=== PATIENT | male | born 1975 | race Caucasian/White ===

== ENCOUNTER 2019-11-15 16:07 | Emergency (ER) | payer MEDICAID, SELFPAY ==
[2019-11-15 16:24] VITALS: BP 143/91; PULSE 81; RESP 19; TEMP 36.8; O2SAT 100; BMI 35.9
--- NOTE | 2019-11-15 16:24 | XR_ITS ---
PROCEDURE: XR FOOT LT MIN 3V CLINICAL INDICATION: PAIN COMPARISON: No exams were available for comparison FINDINGS: No fracture or dislocation. No lytic or blastic change. There is normal mineralization. The joint spaces are well-preserved. No significant degenerative/arthritic changes. No erosive changes evident. Other findings:Prominent area of exostosis involves the anterior distal aspect of the navicular. There is a type 2 os navicularis and an os cuboid in IMPRESSION: No acute findings. Dictated by: Andrea Lechuga MD 11/15/2019 17:46 Electronically signed by Andrea Lechuga MD in [place] 11/15/2019 17:46
--- NOTE | 2019-11-15 16:28 | HMH.EDUTC ---
[facility] [place] Disposition Clinical Impression: Plantar fasciitis Disposition: Home, Self-Care Condition on Discharge: Good Instructions: Get Back in the Game after Plantar Fasciitis, DI for Foot Pain Additional Instructions: Follow up with Podiatry for further evaluation and treatment of pain in left foot *Return if needed Straight to ER if any life threatening symptoms Return if needed Call [facility] later this evening or tomorrow for official Radiology reading of your xray Call Dr Garcia office for appointment, let them know it was recommended that you follow up in the clinic Straight to ER if any life threatening symptoms, Referrals: PCP,No [Primary Care Provider] - As needed Anju Garcia DPM [Staff Physician] - Valerie Cooper APRN [Nurse Practitioner] - Time of Disposition: 17:21 Medical Decision Making - Daniel Inquiry Pt receiving controlled substance: No Daniel was queried for this patient: No Vital Signs: 11/15/19 16:24 Temperature 98.2 F Temperature Source Temporal Artery Scan Pulse Rate [Right Brachial] 81 Respiratory Rate 19 Blood Pressure [Right Arm] 143/91 H Blood Pressure Mean [Right Arm] 108 Blood Pressure Source [Right Arm] Automatic Cuff Blood Pressure Position [Right Arm] Sitting 02 Sat by Pulse Oximetry 100 Oxygen Delivery Method Room Air Orders (Tests/Meds): ORDERS Category Date Time Status XR foot LT min 3V Stat Exams 11/15/19 16:24 Taken - Radiology Data #1 Image(s): Foot/Toes Image Reviewed: Yes I reviewed the patient's radiology image Preliminary Findings: No Fracture Seen No acute fracture, heel spur noted, will place in boot splint and have patient follow up with Dr Garcia [facility] [place] HPI - General Stated complaint: Pain in L foot pain for 2 mos Time Seen by Provider: 11/15/19 16:28 Mode of Arrival: Ambulatory Source of Information: Patient Limitations: No Limitations Description of Symptoms (Recalled from Triage Doc. by RN): left foot pain HEENT Symptoms (Recalled from RN notes): No Resp Symptoms (Recalled from RN notes): No Skin Symptoms (Recalled from RN notes): No MS Symptoms (Recalled from RN notes): Yes Functional Status (Recalled from RN notes): none - History of Present Illness Provider Complaint: Patient states that he has been having pain in his left foot on and off for about a month States thata pain in his his left heel area and shoots up into his foot States that pain is worse when he first wakes up in the morning States that he bought some inserts for his shoes but it hasnt helped and someone said he may have planter Facitits so he come in to get it checked - Related Data Allergies Allergy/AdvReac Type Severity Reaction Status Date / Time No Known Allergies Allergy Verified 11/15/19 16:20 - Worker's Comp Is this a Worker's Comp case?: No [facility] History - Hepatitis A Screen Drug use history?: No High risk sexual behaviors?: No History of sexually transmitted infection?: No Currently employed?: No Childcare worker?: No Do you have indoor plumbing?: Yes Do you have electricity?: Yes Attestation statement:: This patient has been screened for Hepatitis A risk factors. I have reviewed the patient's past medical history: Yes Medical History: Denies:: Cancer, Diabetes Mellitus Type 1, Diabetes Mellitus Type 2, Internal Pacemaker, MRSA Other Surgeries: No: Pacemaker Amputation: No Fractures: No - Social History Smoking Status: Never smoker Alcohol Intake: never Occupational Status: employed ROS Obtained: Yes All systems reviewed & no additional complaints, Yes Systems reviewed as appropriate & no additional complaints - Constitutional Constitutional: Reports system reviewed and no additional complaints, except as docu - Eyes Eyes: Reports system reviewed and no additional complaints, except as docu - ENT Ears, Nose, Mouth, and Throat: Reports system reviewed and no additional complaints, except as docu - Cardiovascular Cardiovascul
[2019-11-15 17:25] VITALS: BP 143/91; PULSE 81; RESP 19; TEMP 36.8; O2SAT 100
== END 2019-11-15 17:30 | disposition home or self-care (01) ==
PROVIDERS: Emergency Provider Nurse Practitioner
DX: M72.2 Plantar fascial fibromatosis (principal)
CPT/HCPCS: 73630; 99201

== ENCOUNTER → 2021-05-06 10:48 | Outpatient (CLI) | payer MEDICAID, SELFPAY ==
[2021-05-06 11:37] LABS: Basophils # 0.1 K/mm3 (0-0.2); Basophils % 0.7 % (0.1-2.0); Eosinophils # 0.1 K/mm3 (0.0-0.4); Eosinophils % 1.6 % (0.1-12.0); Hematocrit 46.5 % (42.0-52.0); Hemoglobin 15.1 g/dL (14.1-18.0); Lymphocytes # 2.2 K/mm3 (0.7-4.5); Lymphocytes % 27.9 % (10-50); Mean Corpuscular HGB Conc 32.5 g/dL (31.8-35.4); Mean Corpuscular Hemoglobin 29.7 pg (27.0-31.2); Mean Corpuscular Volume 91.4 fl (80-94); Mean Platelet Volume 9.5 fl (7.4-10.4); Monocytes # 0.5 K/mm3 (0.1-1.0); Monocytes % 5.9 % (1.7-9.3); Neutrophils # 5.1 K/mm3 (1.8-7.8); Neutrophils % 63.9 % (37.0-80.0); Platelet Count 168 K/mm3 (142-424); Red Blood Count 5.08 M/mm3 (4.60-6.20); Red Cell Distribution Width 13.2 % (11.5-17.5)
[2021-05-06 12:02] LABS: Alanine Aminotransferase 37 U/L (12-78); Albumin Level 4.1 g/dl (3.5-5.0); Albumin/Globulin Ratio 1.3 (1.1-1.8); Alkaline Phosphatase 69 U/L (38-126); Anion Gap 10.1 mEq/L (5-15); Aspartate Amino Transferase 34 U/L (17-59); Bilirubin,Total 1.2 mg/dl (0.2-1.3); Blood Urea Nitrogen 12 mg/dl (9-20); Calcium 9.2 mg/dl (8.4-10.2); Carbon Dioxide 30 mmol/L (22.0-30.0); Chloride 100 mmol/L (98-107); Cholesterol 139 mg/dl (140-200); Estimated Glomerular Filt Rate 104 ml/min (>60); GFR (African American) 126 ML/MIN (>60); Globulin 3.2 g/dL (1.3-3.2); Glucose 139 mg/dl (74-100); HDL Cholesterol 35 mg/dl (40-60); Potassium 4.1 mmoL/L (3.5-5.1); Sodium 136 mmol/L (136-145); Total Protein,Serum 7.3 g/dl (6.3-8.2); Triglycerides 155 mg/dl (30-150); VLDL Cholesterol 31 mg/dL (0-40)
[2021-05-06 12:13] LABS: Direct LDL Cholesterol 76.31 mg/dL (100-129)
[2021-05-06 12:33] LABS: Prostate Specific Ag Screen 3.1 ng/ml (0.0-4.0); Thyroid Stimulating Hormone 2.03 uIU/mL (0.465-4.68)
[2021-05-06 16:31] LABS: Hemoglobin A1C 5.9 % (4.0-6.0)
[2021-05-07 08:37] LABS: Testosterone,Total 207 ng/dL (264-916)
== END ==
PROVIDERS: Visit Provider Nurse Practitioner Family
DX: Z00.00 Encounter for general adult medical examination without abnormal findings (principal); N52.9 Male erectile dysfunction, unspecified; R73.9 Hyperglycemia, unspecified; Z12.5 Encounter for screening for malignant neoplasm of prostate
CPT/HCPCS: 80053; 80061; 83036; 84403; 84443; 85025; G0103

== ENCOUNTER → 2021-06-25 08:41 | Outpatient (CLI) | payer MEDICAID, SELFPAY ==
[2021-06-26 08:25] LABS: Testosterone,Total 281 ng/dL (264-916)
== END ==
PROVIDERS: Visit Provider Nurse Practitioner Family
DX: R79.89 Other specified abnormal findings of blood chemistry (principal)
CPT/HCPCS: 36415; 84403

== ENCOUNTER 2024-08-24 13:07 | Outpatient (CLI) | payer MEDICAID, SELFPAY ==
--- NOTE | 2024-08-24 13:11 | XR_ITS ---
FINAL REPORT CLINICAL HISTORY: Neck pain, stiffness x1 year COMPARISON: None FINDINGS: CERVICAL SPINE 6 views of the cervical spine were obtained. There is no acute fracture. There is no malalignment. The vertebrae are normal in height. The disc spaces are preserved. There are prominent anterior osteophytes bridging C3-4 and C4-5. IMPRESSION: Degenerative changes without acute abnormality. THORACIC SPINE 5 views of the thoracic spine were obtained. There is no acute fracture. There is no malalignment. The vertebrae are normal in height. The spaces are preserved. There is ossification of the anterior longitudinal ligament. IMPRESSION: Degenerative changes without acute abnormality. LUMBAR SPINE 5 views of the lumbar spine were obtained. There is no acute fracture. There is no malalignment. The vertebrae are normal in height. The disc spaces are preserved. There is mild anterior osteophyte formation at L3-4, L4-5, and L5-S1. IMPRESSION: Degenerative changes without acute abnormality. Reviewed, Interpreted and Dictated by Cristopher Krishnamurthy MD Transcribed by Deann Marx Authenticated and [facility]
[2024-08-24 14:28] LABS: Basophils % 0.6 % (0.1-2.0); Eosinophils # 0.2 Kmm3 (0.0-0.4); Eosinophils % 2.1 % (0.1-12.0); Hematocrit 40.4 % (42.0-52.0); Hemoglobin 13.6 g/dL (14.1-18.0); Lymphocytes # 2.5 K/mm3 (0.7-4.5); Mean Corpuscular HGB Conc 33.7 g/dL (31.8-35.4); Mean Corpuscular Hemoglobin 29.3 pg (27.0-31.2); Mean Corpuscular Volume 87.1 fl (80-94); Mean Platelet Volume 11.4 fl (7.4-10.4); Monocytes # 0.8 K/mm3 (0.1-1.0); Monocytes % 11.2 % (1.7-9.3); Neutrophils # 3.5 K/mm3 (1.8-7.8); Nucleated Red Blood Cells # 0 10^3/uL; Nucleated Red Blood Cells % 0 %; Platelet Count 151 K/mm3 (142-424); Red Blood Count 4.64 M/mm3 (4.60-6.20); Red Cell Distribution Width 13.3 % (11.5-17.5); Red Cell Distribution Width-SD 41.8 fL; White Blood Count 7.1 K/mm3 (4.8-10.8)
[2024-08-24 14:34] LABS: Albumin Level 3.8 g/dl (3.5-5.0); Chloride 104 mmol/L (98-107); Sodium 139 mmol/L (136-145)
[2024-08-24 14:37] LABS: Alanine Aminotransferase 21 U/L (12-78); Albumin/Globulin Ratio 1.1 (1.1-1.8); Alkaline Phosphatase 60 U/L (38-126); Aspartate Amino Transferase 29 U/L (17-59); Bilirubin,Total 1.3 mg/dl (0.2-1.3); Blood Urea Nitrogen 11 mg/dl (9-20); Calcium 8.7 mg/dl (8.4-10.2); Carbon Dioxide 29 mmol/L (22.0-30.0); Estimated Glomerular Filt Rate 102 ml/min (>60); GFR (African American) 124 ML/MIN (>60); Globulin 3.6 g/dL (1.3-3.2); Glucose 84 mg/dl (74-100); Total Protein,Serum 7.4 g/dl (6.3-8.2)
[2024-08-24 15:36] LABS: Erythrocyte Sedimentation Rate 21 mm/hr (0-15)
[2024-08-25 12:27] LABS: Anti-Centromere B Antibodies <0.2 AI (0.0-0.9); Anti-DNA (DS) Ab Qn <1 IU/mL (0-9); Anti-Jo-1 <0.2 AI (0.0-0.9); Anti-Smith Antibody <0.2 AI (0.0-0.9); Antichromatin Antibodies <0.2 AI (0.0-0.9); Antiscleroderma-70 Antibodies <0.2 AI (0.0-0.9); RNP Antibodies <0.2 AI (0.0-0.9); Sjogren's Anti-SS-A <0.2 AI (0.0-0.9); Sjogren's Anti-SS-B <0.2 AI (0.0-0.9)
[2024-08-31 02:56] LABS: Anti-CCP Abs,IgG and IgA (RDL) < 20 Units (<20)
[2024-08-31 15:17] LABS: HLA-B27 Negative (.)
== END 2024-08-24 23:59 | disposition home or self-care (01) ==
LOC: RAD 13:08
PROVIDERS: PCP Internal Medicine Adolescent Medicine; Visit Provider Internal Medicine Adolescent Medicine
DX: M54.2 Cervicalgia (principal); M25.60 Stiffness of unspecified joint, not elsewhere classified
CPT/HCPCS: 36415; 72084; 80053; 85025; 85651; 86200; 86225; 86235; 86812